=== PATIENT | female | born 1945 | race Caucasian/White ===

== ENCOUNTER → 2017-03-22 | Outpatient (CLI) | payer MEDICARE, OTHER ==
[~2017-03-22] MED LIST: ALPRAZOLAM0.5 MG PO; LEVOTHYROXINE137 MCG PO; MELOXICAM15 MG PO; TRAMADOL HCL50 MG PO
[2017-03-22 10:48] LABS: HEMOGLOBIN 12.1 gm/dl (12.3-15.3); RED BLOOD COUNT 4.3 M/UL (4.00-5.10); WHITE BLOOD COUNT 5.3 K/UL (4.5-11.0)
[2017-03-22 11:12] LABS: BUN/CREATININE RATIO 20 (0-10)
== END ==
LOC: LAB 10:13
PROVIDERS: Internal Medicine
DX: E11.9 Type 2 diabetes mellitus without complications (principal); I10 Essential (primary) hypertension; M81.0 Age-related osteoporosis without current pathological fracture; E03.9 Hypothyroidism, unspecified; D51.9 Vitamin B12 deficiency anemia, unspecified
CPT/HCPCS: 36415; 80053; 80061; 82043; 82607; 83036; 84443; 85027

== ENCOUNTER 2020-12-15 16:13 | Emergency (ER) | payer MEDICARE, OTHER ==
[~2020-12-15 16:13] MED LIST changes: +AMIODARONE HCL200 MG PO; +CALCIUM500 MG PO; +COLACE 100MG C100 MG PO; +CYANOCOBAL1000 MCG/1 INJ; +ELIQUIS 5 MG TAB5 MG PO; +LEVOTHYROXINE100 MCG PO; -LEVOTHYROXINE137 MCG PO; +LORTAB 5-325 M1 EACH PO; +MACROBID 100 M100 MG PO; +NORCO 5-325 TA1 EACH PO; +NORVASC 5 MG TAB5 MG PO; +PYRIDIUM200 MG PO; +SYNTHROID 125125 MCG PO
[2020-12-15 18:20] LABS: HEMOGLOBIN 12.6 gm/dl (12.3-15.3); RED BLOOD COUNT 4.43 M/UL (4.00-5.10); WHITE BLOOD COUNT 4.1 K/UL (4.5-11.0)
[2020-12-15 18:43] LABS: BUN/CREATININE RATIO 17 (0-10)
== END 2020-12-15 22:22 | disposition expired ==
LOC: ER1 16:13
PROVIDERS: Family Medicine
DX: J02.0 Streptococcal pharyngitis (principal); R11.0 Nausea; M79.10 Myalgia, unspecified site; I10 Essential (primary) hypertension; Z20.822 Contact with and (suspected) exposure to COVID-19
CPT/HCPCS: 36415; 71045; 80053; 81001; 82550; 82553; 83690; 84484; 85025; 87081; 87880; 99284; U0002

== ENCOUNTER → 2021-06-03 | Outpatient (CLI) | payer MEDICARE, SELFPAY ==
[2021-06-03 11:23] LABS: HEMOGLOBIN 12.4 gm/dl (12.3-15.3); RED BLOOD COUNT 4.26 M/UL (4.00-5.10); WHITE BLOOD COUNT 4.7 K/UL (4.5-11.0)
[2021-06-03 15:43] LABS: BUN/CREATININE RATIO 12 (0-10)
[2021-06-04 10:21] LABS: CREATININE, URINE 106.4 mg/dL (Not Estab.)
== END ==
LOC: LAB 10:25
PROVIDERS: Internal Medicine
DX: E03.9 Hypothyroidism, unspecified (principal); E53.8 Deficiency of other specified B group vitamins; E11.22 Type 2 diabetes mellitus with diabetic chronic kidney disease; N18.2 Chronic kidney disease, stage 2 (mild)
CPT/HCPCS: 36415; 80053; 80061; 82043; 82570; 82607; 83036; 84443; 85025

== ENCOUNTER → 2021-10-09 | Outpatient (CLI) | payer MEDICARE | LOC: KOH-I 11:00 | DX: R10.829 Rebound abdominal tenderness, unspecified site (principal) | CPT/HCPCS: 76775 ==

== ENCOUNTER → 2021-10-29 | Outpatient (CLI) | payer MEDICARE ==
[2021-10-29 16:08] LABS: HEMOGLOBIN 12.3 gm/dl (12.3-15.3); RED BLOOD COUNT 4.15 M/UL (4.00-5.10); WHITE BLOOD COUNT 4.6 K/UL (4.5-11.0)
[2021-10-29 16:44] LABS: BUN/CREATININE RATIO 18 (0-10)
[2021-10-30 11:14] LABS: CREATININE, URINE 126.5 mg/dL (Not Estab.)
== END ==
LOC: LAB 15:01
PROVIDERS: Internal Medicine
DX: I12.9 Hypertensive chronic kidney disease with stage 1 through stage 4 chronic kidney disease, or unspecified chronic kidney disease (principal); E11.22 Type 2 diabetes mellitus with diabetic chronic kidney disease; N18.2 Chronic kidney disease, stage 2 (mild); E53.8 Deficiency of other specified B group vitamins; E55.9 Vitamin D deficiency, unspecified
CPT/HCPCS: 36415; 80053; 80061; 82043; 82570; 82607; 83036; 84439; 84443; 85025

== ENCOUNTER 2021-10-31 12:24 | Emergency (ER) | payer MEDICARE | END 2021-10-31 14:25 | disposition home or self-care (01) | LOC: ER1 12:24 | DX: R13.10 Dysphagia, unspecified (principal); J02.9 Acute pharyngitis, unspecified; I10 Essential (primary) hypertension | CPT/HCPCS: 99282 ==

== ENCOUNTER 2022-02-09 15:30 | Emergency (ER) | payer MEDICARE ==
[2022-02-09 17:45] LABS: HEMOGLOBIN 11.6 gm/dl (12.3-15.3); RED BLOOD COUNT 4.01 M/UL (4.00-5.10); WHITE BLOOD COUNT 5.3 K/UL (4.5-11.0)
[2022-02-09 18:49] LABS: BUN/CREATININE RATIO 14 (0-10)
== END 2022-02-09 21:38 | disposition home or self-care (01) ==
LOC: ER1 15:30
PROVIDERS: Physician Assistant Medical
DX: R07.89 Other chest pain (principal); G89.29 Other chronic pain; F41.9 Anxiety disorder, unspecified; R13.10 Dysphagia, unspecified; R51.9 Headache, unspecified; I10 Essential (primary) hypertension; E11.9 Type 2 diabetes mellitus without complications
CPT/HCPCS: 71045; 80053; 82550; 82553; 84439; 84443; 84484; 85025; 93005; 99285

== ENCOUNTER → 2022-02-22 | Outpatient (CLI) | payer MEDICARE | LOC: KOH-I 02-15 11:00 | DX: R93.89 Abnormal findings on diagnostic imaging of other specified body structures (principal) | CPT/HCPCS: 71250 ==

== ENCOUNTER 2022-05-24 20:32 | Emergency (ER) | payer MEDICARE ==
[2022-05-24 21:42] LABS: HEMOGLOBIN 11.5 gm/dl (12.3-15.3); RED BLOOD COUNT 4.07 M/UL (4.00-5.10); WHITE BLOOD COUNT 3.8 K/UL (4.5-11.0)
[2022-05-24] MEDS ORDERED: MEDROL DOSEPAK 24 MG PO (22:55)
[2022-05-24] MEDS ORDERED: DELSYM30 MG/5 ML PO (22:55)
[2022-05-24] MEDS ORDERED: FLONASE 0.05% N16 GM (22:55)
== END 2022-05-24 23:00 | disposition home or self-care (01) ==
LOC: ER1 20:32
PROVIDERS: Physician Assistant Medical
DX: B34.9 Viral infection, unspecified (principal); E11.9 Type 2 diabetes mellitus without complications; R21 Rash and other nonspecific skin eruption; Z20.822 Contact with and (suspected) exposure to COVID-19
CPT/HCPCS: 0240U; 71046; 80053; 85025; 87081; 87880; 99283

== ENCOUNTER → 2022-06-03 | Outpatient (CLI) | payer MEDICARE ==
[~2022-06-03] MED LIST changes: +DELSYM30 MG/5 ML PO; +FLONASE 0.05% N16 GM; +MEDROL DOSEPAK 24 MG PO
[2022-06-03 15:14] LABS: HEMOGLOBIN 12.8 gm/dl (12.3-15.3); RED BLOOD COUNT 4.63 M/UL (4.00-5.10); WHITE BLOOD COUNT 5.4 K/UL (4.5-11.0)
[2022-06-03 16:03] LABS: BUN/CREATININE RATIO 15 (0-10)
== END ==
LOC: LAB 13:56
PROVIDERS: Internal Medicine
DX: D51.9 Vitamin B12 deficiency anemia, unspecified (principal); E03.9 Hypothyroidism, unspecified; E53.9 Vitamin B deficiency, unspecified; E11.22 Type 2 diabetes mellitus with diabetic chronic kidney disease; N18.30 Chronic kidney disease, stage 3 unspecified; E78.2 Mixed hyperlipidemia
CPT/HCPCS: 36415; 80053; 82607; 84439; 84443; 85025